=== PATIENT | male | born 1975 | race Hispanic/Latino ===

== ENCOUNTER 2024-04-19 08:57 | Emergency (ER) | payer OTHER ==
[~2024-04-19] VITALS: Ht 172.7 cm; Wt 65.0 kg
[2024-04-19 09:03] VITALS: BP 121/74
[2024-04-19 09:19] VITALS: BP 136/96
[2024-04-19 09:30] VITALS: BP 132/63
[2024-04-19 09:45] VITALS: BP 132/71
[2024-04-19] MEDS ORDERED: TAM75CAP PO (09:59)
[2024-04-19] MEDS ORDERED: ACETAMINOPHEN 500 MG TAB PO ONE (10:00)
[2024-04-19 10:01] VITALS: BP 128/96
[2024-04-19] MEDS ORDERED: IBUPROFEN 200 MG/TAB PO ONE (10:05)
[2024-04-19 10:45] VITALS: BP 128/78
[2024-04-19] MEDS ORDERED: ZOFRAN4 MG/TAB PO (22:36)
[2024-04-19] MEDS ORDERED: IBUPROFEN600 MG PO (22:36)
== END 2024-04-19 11:10 | disposition home or self-care (01) | DRG 153 ==
LOC: ED 08:57
DX: J11.1 Influenza due to unidentified influenza virus with other respiratory manifestations (principal); F17.290 Nicotine dependence, other tobacco product, uncomplicated; Z20.822 Contact with and (suspected) exposure to COVID-19
CPT/HCPCS: J2405

== ENCOUNTER 2024-04-19 21:52 | Emergency (ER) | payer OTHER ==
[~2024-04-19] VITALS: Ht 172.7 cm; Wt 63.0 kg
[~2024-04-19 21:52] MED LIST: TAM75CAP PO
[2024-04-19] MEDS ORDERED: ONDANSETRON HCl 4 MG/2 ML SDV IM ONE (22:30)
[2024-04-19] MEDS ORDERED: KETOROLAC TROMETHAMINE 30 MG/ML SDV IM ONE (22:30)
[2024-04-19] MEDS ORDERED: ZOFRAN4 MG/TAB PO (22:36)
[2024-04-19] MEDS ORDERED: IBUPROFEN600 MG PO (22:36)
[2024-04-19 23:23] VITALS: BP 118/63
== END 2024-04-19 23:23 | disposition home or self-care (01) | DRG 195 ==
LOC: ED 21:52
DX: J10.1 Influenza due to other identified influenza virus with other respiratory manifestations (principal)
CPT/HCPCS: J2405